=== PATIENT | male | born 1945 | race African-American/Black ===

== ENCOUNTER 2017-04-13 19:32 | Emergency (ER) | payer OTHER ==
[~2017-04-13] VITALS: Ht 172.7 cm; Wt 59.0 kg
[2017-04-13] MEDS ORDERED: PROAIR HFA8.5 GM INH (20:19)
[2017-04-13] MEDS ORDERED: GUAIFEN-CODEINE10 ML PO (20:19)
== END 2017-04-13 20:39 | disposition home or self-care (01) ==
LOC: ER 19:32
DX: J06.9 Acute upper respiratory infection, unspecified (principal)